=== PATIENT | female | born 2005 ===

== ENCOUNTER 2025-03-07 22:56 | Inpatient (IN) | payer MEDICAID ==
[~2025-03-07] VITALS: Ht 160 cm; Wt 97.7 kg
[2025-03-08 00:23] VITALS: BP 126/76; PULSE 79; RESP 14; TEMP 98.7; O2SAT 99
[2025-03-08] MEDS ORDERED: magnesium hydroxide 30ml (MOM) UD suspension PO PRN (00:55)
[2025-03-08] MEDS ORDERED: mag hydrox/Alum hydrox/simeth 30ml oral suspension PO PRN (00:55)
[2025-03-08] MEDS ORDERED: loperamide 2mg capsule PO PRN (00:55)
[2025-03-08 01:42] VITALS: RESP 14
[2025-03-08] MEDS ORDERED: PRAM0.258 PO (04:01)
[2025-03-08] MEDS ORDERED: HYDR50CA5 PO (04:01)
[2025-03-08] MEDS ORDERED: PRAZ2CAP2 PO (04:01)
[2025-03-08] MEDS ORDERED: TOPI50TA PO (04:01)
[2025-03-08] MEDS ORDERED: ZIPR60CA7 PO (04:01)
[2025-03-08] MEDS ORDERED: TOPI-95 PO (04:01)
[2025-03-08] MEDS ORDERED: ibuprofen PO (04:01)
[2025-03-08 07:00] VITALS: RESP 12; O2SAT 99
[2025-03-08 08:00] VITALS: BP 105/55; PULSE 77; RESP 12; TEMP 98.1; O2SAT 99
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
[2025-03-08] MEDS ORDERED: IBUP600T52 PO (17:17)
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
[2025-03-08 19:00] VITALS: RESP 14; O2SAT 99
[2025-03-08 20:00] VITALS: BP 113/74; PULSE 88; RESP 16; TEMP 97.8; O2SAT 98
[2025-03-09 06:48] LABS: MEAN PLATELET VOLUME 9.5 FL (7.4-10.4); RED CELL DISTRIBUTION WIDTH 15.1 % (11.5-14.5)
[2025-03-09 06:59] LABS: CHOL/HDL RATIO 2.8 (0.00-4.99); CREATININE 0.66 MG/DL (0.40-0.90); LDL CHOLESTEROL 91 MG/DL (50-100); TOTAL CARBON DIOXIDE 26.5 MMOL/L (24-32); eCRCL 112 ML/MIN; eGFR > 90 ML/MIN
[2025-03-09 07:00] VITALS: RESP 16; O2SAT 97
[2025-03-09 08:00] VITALS: BP 114/64; PULSE 101; RESP 16; TEMP 97.4; O2SAT 97
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
[2025-03-09 19:00] VITALS: RESP 17; O2SAT 98
[2025-03-09 20:00] VITALS: BP 129/67; PULSE 88; RESP 17; TEMP 97.1; O2SAT 98
[2025-03-10 07:00] VITALS: RESP 16; O2SAT 98
[2025-03-10 08:00] VITALS: BP 99/47; PULSE 70; RESP 16; TEMP 98; O2SAT 98
--- NOTE | 2025-03-10 14:24 | PROGRESS NOTE ---
Progress Note Dictate Providers to CC ~ Central Line/PICC still needed: N\\A Antibiotic Ordered?: No MRSA Education MRSA Education Provided to pt: No Objective Vitals Vital Signs Date Time Temp Pulse Resp B/P (MAP) Pulse Ox O2 Delivery O2 Flow Rate FiO2 03/10/25 08:00 98.0 70 16 99/47 (64) 98 Room Air Lab Results: 03/09/25 0620 03/09/25 0620 Problem\\Assessment\\Plan Problems/Diagnosis: (1) Schizophrenia (2) Suicidal ideation Psychiatrist's Progress Note Date of Service: Mar 10, 2025 Notes CHART REVIEW ASSESSMENT The patient was interviewed in observation room. The patient was actively sitting in rec room engaging with male peer. The patient endorses "better.' Denies SI. Denies HI. Denies AVH The patient endorses adequate sleep and food intake. The patient is stable no acute distress noted. The patient presents as less depressed. The patient is A/O x3. Per staff report patient is medication compliant. Per staff report no abnormal behaviors. Will continue daily assessment and adjusting treatment as needed. Closely monitor behavior and response to medication during hospitalization. Results Of any Diagn. Testing REVIEW OF LABS WBC 6.8 RBC 4.59 HEMOGLOBIN 12.6 HEMATOCRIT 38.7 PLATELET 242 SODIUM 141 POTASSIUM 3.4 CHLORIDE 113 ANION GAP 8 BUN 7 GLUCOSE 85 CREATININE 0.71 ALT 11 AST 51 CALCIUM 9.0 URINALYSIS NEGATIVE URINE TOX SCREEN POSITIVE THC Speech: Normal Eye Contact: Normal Motor Activity: Normal Affect: Full Mood: Euthymic Orientation Impairment: None Memory Impairment: None Attention: Normal Hallucinations: None Other: None Suicidality: None Homicidality: None Delusions: None Behavior: Cooperative Insight: Good Judgment: Good Treatment GEODON 80MG PO DAILY TOPAMAX 100 MG P.O. Q.A.M. TOPAMAX 50 MG P.O. Q.H.S. PRAZOSIN 2 MG P.O. Q.H.S. HYDROXYZINE 50 MG P.O. Q EIGHT SERTRALINE 200 MG P.O. DAILY 5150 HOLD-GD- Patient is unable to formulate a plan to safety. We are still titrating medications to an effective dose while maintaining a therapeutic environment to prevent decompensation and readmission. Monitoring by Staff, Milieu, Group, and Individual counseling as needed -- According to the [place] Suicide Assessment the above named patient is on Q15 MINUTE CHECKS. Total time spent 40 minutes on REVIEW OF Clinical notes [X ] RN notes [X] PCT documentation [X] SW notes Labs [ X] Medications [X] Care trends/care activity [X] Vitals [X] DISCUSSION WITH correction worker [X] Staff SW Treatment Team [X] Discharge UNSURE AT THIS TIME. DISCHARGE HOME ONCE STABLE CODING VISIT-PSYCHIATRY Date of Service: Mar 10, 2025 Billing Provider: HEATHER MUKHERJEE APRN Psych Common Visit Codes: [id number] INP/OBS CARE(Low) HEATHER MUKHERJEE APRN Mar 10, 2025 14:24
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
[2025-03-10 19:00] VITALS: RESP 16; O2SAT 95
[2025-03-10 20:00] VITALS: BP 112/72; PULSE 98; RESP 16; TEMP 98; O2SAT 95
[2025-03-11 07:00] VITALS: RESP 16; O2SAT 99
[2025-03-11 08:00] VITALS: BP 102/52; PULSE 90; RESP 14; TEMP 97.9; O2SAT 100
[2025-03-11 11:04] LABS: FSH, SERUM 4.3 mIU/mL (.); LUTEINIZING HORMONE 7.4 mIU/mL (.)
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
[2025-03-11 19:00] VITALS: RESP 16; O2SAT 97
[2025-03-11 20:00] VITALS: BP 107/82; PULSE 92; RESP 16; TEMP 97.1; O2SAT 97
[2025-03-12 07:00] VITALS: RESP 16; O2SAT 97
[2025-03-12 08:00] VITALS: BP 111/48; PULSE 100; RESP 16; TEMP 98.4; O2SAT 97
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
[2025-03-12] MEDS ORDERED: TOP100T PO (11:29)
[2025-03-12] MEDS ORDERED: HYDR50CA5 PO (11:29)
[2025-03-12] MEDS ORDERED: ZIPR80CA10 PO (11:29)
[2025-03-12] MEDS ORDERED: PRAM0.258 PO (11:29)
[2025-03-12] MEDS ORDERED: PRAZ2CAP2 PO (11:29)
[2025-03-12] MEDS ORDERED: SERT-434 PO (11:29)
== END 2025-03-12 15:22 | disposition home or self-care (01) | DRG 750 ==
LOC: ADULT MH 03-08 00:12
PROVIDERS: ADMIT Psychiatry & Neurology Psychiatry; ATTEND Psychiatry & Neurology Psychiatry
PROC: GZHZZZZ Group Psychotherapy (ICD-10-PCS; principal; 2025-03-08)
PROC: GZ51ZZZ Individual Psychotherapy, Behavioral (ICD-10-PCS; 2025-03-08)
DX: F20.9 Schizophrenia, unspecified (principal); R45.851 Suicidal ideations; F32.A Depression, unspecified; E66.813 Obesity, class 3; F41.9 Anxiety disorder, unspecified; E28.2 Polycystic ovarian syndrome; Z68.38 Body mass index [BMI] 38.0-38.9, adult; Z79.899 Other long term (current) drug therapy
CPT/HCPCS: 36415; 80053; 80061; 83001; 83002; 83036; 84443; 85025; 87081; 99285